=== PATIENT | male | born 1980 | race Two or more races ===

== ENCOUNTER 2018-11-08 15:54 | Emergency (ER) | payer MEDICAID ==
--- NOTE | 2018-11-08 16:57 | EDPHY ---
H & P Stated Complaint: acute onset upper back pain SOB this afternoon- Source: Patient Exam Limitations: No limitations - Medical/Surgical History Hx Asthma: No Hx Chronic Respiratory Disease: No Hx Diabetes: No Hx Cardiac Disease: No Hx Renal Disease: No Hx Cirrhosis: No Hx Alcoholism: No Hx HIV/AIDS: No Hx Splenectomy or Spleen Trauma: No Other PMH: denies - Social History Smoking Status: Current every day smoker Time Seen by Provider: 11/08/18 16:50 HPI/ROS: HPI: This is a 38-year-old male who presents with Chief Complaint: acute onset upper back pain SOB this afternoon- Location: Epigastric radiating into his back Quality: Burning, sharp Pain Duration: Started 1-3 hours prior to arrival Signs and Symptoms: + shortness of breath at rest, no shortness of breath on exertion, no cough, no chest pain, no palpitations, no lower extremity edema, no wheezing, no orthopnea, no paroxysmal nocturnal dyspnea, no fever, no injury/ trauma, no hemoptysis, no carpal pedal spasms, + indigestion Timing: Acute, intermittent episodes Severity: Moderate Context: Patient reports that several hours prior to arrival to the emergency room he developed acute onset of bilateral thoracic back pain that worsens with taking a deep breath. He also complains of epigastric sharp burning discomfort that radiates into his back. He is employed at a [employer] has been eating large fatty foods over the last several weeks. He does note some indigestion after ED needs meals. He denies any recent long distance travel. Positive smoker. Denies any heavy lifting, trauma. He is right-hand dominant. No history of lung disease. Patient feels short of breath at rest. Modifying Factors: Tried no [id number] pain medication Comment: ROS: A comprehensive 10 system review of systems is otherwise negative aside from elements mentioned in the history of present illness. MEDICAL/SURGICAL/SOCIAL HISTORY: Medical history: Generally healthy. Does not take any regular medications. Surgical history: Denies Social history: Employed at a "[employer] Current every day smoker. CONSTITUTIONAL: Extremely well-appearing middle-aged white male, awake and alert, no obvious distress HEENT: Atraumatic and normocephalic, PERRL, EOMI. Nares patent; no rhinorrhea; no nasal mucosal edema. Tympanic membranes clear. Oropharynx clear, no exudate and moist pink mucosa. Airway patent. No lymphadenopathy. No meningismus. Cardiovascular: Normal S1/S2, regular rate, regular rhythm, without murmur rub or gallop. PULMONARY/CHEST: Symmetrical and nontender. Clear to auscultation bilaterally. Good air movement. No accessory muscle usage. ABDOMEN: Soft, nondistended, nontender-patient actually giggles and says that he is ticklish during abdominal exam, no rebound, no guarding, no peritoneal signs, no masses or organomegaly. No CVAT. BACK: No midline tenderness, no paraspinous spasm, deep tendon reflexes 2/2, no pain with straight leg raise, No foot drop. Achilles reflexes are equal bilaterally. Able to walk on heels and toes without difficulty. EXTREMITIES: 2/2 pulses, strength 5/5, no deformities, no clubbing, no cyanosis or edema. NEUROLOGICAL: no focal neuro deficits. GCS 15. SKIN: Warm and dry, no erythema. no rash. Good capillary refill. (Arabella Avila) Constitutional: Initial Vital Signs Temperature (C) 37.0 C 11/08/18 16:02 Heart Rate 78 11/08/18 16:02 Respiratory Rate 22 H 11/08/18 16:02 Blood Pressure 110/81 H 11/08/18 16:02 O2 Sat (%) 95 11/08/18 16:02 O2 Delivery Mode Room Air Allergies/Adverse Reactions: No Known Allergies Allergy (Unverified 11/08/18 16:01) Home Medications: Medication Instructions Recorded Cyclobenzaprine [Flexeril 10 MG 10 mg PO TID PRN #15 tab 11/08/18 (*)] Medical Decision Making ED Course/Re-evaluation: Vital signs reviewed and stable upon arrival. Placed on conveyor monitor. Chest x-ray ordered and my read via PAC shows no opacity, no effusion, no widened mediastinum, no pneumothorax. IV access, laboratory studies ordered Given Pepcid and GI cocktail 1730: Laboratory studies reviewed. No signs of leukocytosis/anemia/platelet dysfunction/SAUD/elevated LFTs/electrolyte imbalance/pancreatitis/VTE. Believe this is thoracic strain along with GERD versus gastritis Started on Nexium [id number] and referral to Gastroenterology. I did given prescription for Flexeril. This patient was seen under the supervision of my secondary supervising physician. I evaluated and cared for this patient independently. (Arabella Avila) The patient was evaluated and managed by the physician web marketing assistant. I have reviewed this chart and I agree with the findings and plan of care as documented , as indicated by my signature. I am the secondary supervising physician. ( Kaylynn Le) Differential Diagnosis: Shortness of breath including but not limited to pulmonary infectious process, COPD, asthma, pulmonary embolus and congestive heart failure. (Arabella Avila) - Data Points Laboratory Results: Laboratory Results 11/08/18 17:05 11/08/18 17:05 Medications Given: Discontinued Medications Al Hydroxide/Mg Hydroxide (Maalox Susp) 30 ml PO ONCE ONE Stop: 11/08/18 17:02 Last Admin: 11/08/18 17:10 Dose: 30 ml Famotidine (Pepcid) 20 mg PO EDNOW ONE Stop: 11/08/18 17:02 Last Admin: 11/08/18 17:10 Dose: 20 mg Hyoscyamine Sulfate (Levsin, Hyomax-Sl) 0.25 mg PO ONCE ONE Stop: 11/08/18 17:02 Last Admin: 11/08/18 17:10 Dose: 0.25 mg Lidocaine (Lidocaine 2% Viscous) 15 ml PO ONCE ONE Stop: 11/08/18 17:02 Last Admin: 11/08/18 17:10 Dose: 15 ml Departure - Departure Disposition: Home, Routine, Self-Care Clinical Impression: Strain of thoracic region, GERD (gastroesophageal reflux disease) Condition: Good Instructions: Esomeprazole (By mouth), Diet for Stomach Ulcers and Gastritis ( ED), Gastroesophageal Reflux Disease (ED) Additional Instructions: Consume a minimum of 8-10 glasses of water or electrolyte fluid replacement drinks that include Gatorade, Powerade, Pedialyte. Eat a bland diet for the next 48 hours and then slowly advance as tolerated. Please follow gastritis/GERD diet. Take [id number] Nexium daily. Take Tylenol 650 mg every 4 hours and/or Ibuprofen 600 mg every 8 hours with food as needed for pain. Use Flexeril every 8 hours as needed for muscle spasms. Make an appointment with Gastroenterology if symptoms persist greater than 1-2 weeks. You may need an EGD. Referrals: Pepe Umaña MD [Medical Doctor] - Freedman,Farzana, PAC [Physician Manager Mechanical Maintenance] - As per Instructions Prescriptions: Cyclobenzaprine [Flexeril 10 MG (*)] 10 mg PO TID PRN #15 tab PRN Reason: Spasms
[2018-11-08] MEDS ORDERED: LIDOCAINE 2% VISCOUS 15 ML UDCUP PO ONE (17:01)
[2018-11-08] MEDS ORDERED: FAMOTIDINE 20 MG TAB PO ONE (17:01)
[2018-11-08] MEDS ORDERED: MAG HYDROX/AL HYDROX/SIMETH 30 ML UDCUP PO ONE (17:01)
[2018-11-08] MEDS ORDERED: HYOSCYAMINE SULFATE 0.125 MG TAB PO ONE (17:01)
[2018-11-08 17:19] LABS: PLATELET COUNT 337 10^3/uL (150-400)
[2018-11-08 18:21] VITALS: BP 111/76
== END 2018-11-08 18:19 | disposition home or self-care (01) ==
DX: R06.02 Shortness of breath (principal); K21.9 Gastro-esophageal reflux disease without esophagitis; F17.200 Nicotine dependence, unspecified, uncomplicated